=== PATIENT | male | born 1995 | race Caucasian/White ===

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

== ENCOUNTER 2017-03-04 07:07 | Observation (INO) | payer BC ==
[2017-03-04] MEDS ORDERED: NORMAL SALINE 1,000 ML IV ONE ×2 (07:26→08:42)
[2017-03-04 07:34] LABS: Urine Bilirubin Negative (NEGATIVE); Urine Blood Negative /ul (NEGATIVE); Urine Ketone Negative (NEGATIVE); Urine Nitrite Negative (NEGATIVE); Urine Protein Negative (NEGATIVE); Urine Specific Gravity >=1.030 SP.GR. (1.005-1.030); Urine Urobilinogen Normal (NORMAL); Urine pH 5.5 pH (5.0-7.0)
--- NOTE | 2017-03-04 07:39 | ERNOTE ---
<Job Santana - Last Filed: 03/04/17 07:58> Psychological HPI - General Chief Complaint: Drug Overdose Source: Reports: EMS Exam Limitations: Reports: intoxication - Immun/Allergies/Home Medications Allergies/Adverse Reactions: Allergies risperidone Allergy (Severe, Verified 08/27/16 00:32) Anaphylaxis ziprasidone HCl [From Geodon] Allergy (Mild, Verified 08/27/16 00:32) Hives ziprasidone mesylate [From Geodon] Allergy (Mild, Verified 08/27/16 00:32) Hives Home Medications: HOME MEDICATIONS HYDROmorphone HCL [Dilaudid] 2 mg PO TID PRN 08/27/16 [Last Taken Unknown] OXcarbazepine [Oxcarbazepine] 300 mg PO DAILY 03/04/17 [Last Taken Unknown] Quetiapine Fumarate [Seroquel Xr] 200 mg PO HS 03/04/17 [Last Taken Unknown] Sertraline HCl 20 mg PO DAILY 03/04/17 [Last Taken Unknown] - History of Present Illness Narrative: EMS report the patients friend told them that he had been doing meth and xanax for the past few days. He had taken 30 xanax of unknown strength and approx 30 min later he became very somnolent. The friend was driving him to [place] and turned around and took him back home then called 911. EMS were unable to get an IV and report pt only responsive to painful stimuli. Time Seen by Provider: 03/04/17 07:07 Arrived by: Reports: ambulance, called by friend/other Onset/duration: Reports: sudden onset Intent: Reports: other - unknown Mechanism: Reports: overdose Review of Systems - Narrative Narrative: Unable to get ROS due to pt's decreased responsiveness. - Patient's Past Medical History Patient History - Medical: Anxiety, Arthritis, Bipolar, Chronic Pain, Depression Patient History - Cardiac/Respiratory: No pertinent hx Patient History - Cancer: No Hx of Cancer Patient History - Surgical Procedures: No surgical history Patient History - Other: None - Family History Mother Family History - Medical: History Unknown Family History - Cardiac/Respiratory: History Unknown Family History - Cancer: History Unknown Father Family History - Medical: History Unknown Family History - Cardiac/Respiratory: History Unknown Family History - Cancer: History Unknown - Social History Living Situations: parents Abuse History: Hx of Substance Use Psych History: Hx of Anxiety, Hx of Depression, Hx of Bipolar Disorder Drug Use: meth - Immunizations Immunizations Up to Date: - unknown Hx Pneumococcal Vaccination: More Information Required to Determine History of Influenza Vaccine: More Information Required to Determine Psychological Exam - Exam General Appearance: Present: other - initially only responded to painful stimuli , later was opening his eyes spontaneously with obeying some commands Head Exam: Present: normal inspection, no evidence of injury Neurological: Present: responds to pain Eye Exam: PERRL: bilateral Ears, Nose, Throat: Present: normal ENT inspection Neck: Present: supple Respiratory: Present: no respiratory distress, normal breath sounds, no accessory muscle use, lungs clear Cardiovascular/Chest: Present: regular rate, rhythm, no murmur, normal peripheral pulses Gastrointestinal/Abdominal: Present: normal bowel sounds, nondistended, soft Male Genitals Exam: Present: normal genitalia, no hernia Back Exam: Present: normal inspection, normal range of motion Extremity Exam: Present: normal inspection, no edema Skin Exam: Present: normal color, warm/dry, other - erythematous area near umbilicus, sores on dorsal hands. Lymphatic Exam: Present: no adenopathy ED Progress - Vital Signs Patient's Vital Signs:: I have reviewed the patient's vital signs. Vital Signs: Vital Signs 03/04/17 03/04/17 03/04/17 07:08 07:23 07:25 Temperature 36.1 C L Pulse Rate 72 71 73 Respiratory 17 18 Rate Blood Pressure 101/60 110/68 O2 Sat by Pulse 94 98 Oximetry - EKG EKG: NSR EKG read: Interp. by me - Progress/Reassessment Chief Complaint: Drug Overdose - Transfer of Care Physician Sign Out: Job Santana Receiving Physician: Hudson Barajas Pending Results: Labs Expected Disposition: Admit Departure Clinical Impression: Drug abuse Drug overdose Qualifiers: Encounter type: initial encounter Injury intent: undetermined intent Qualified Code(s): T50.904A - Poisoning by unspecified drugs, medicaments and biological substances, undetermined, initial encounter - Departure Disposition: [facility] Condition: Stable <Hudson Barajas - Last Filed: 03/04/17 08:21> ED Progress - Results and Orders Patient's Lab Results:: I have reviewed the patient's lab results. - Vital Signs Patient's Vital Signs:: I have reviewed the patient's vital signs. Vital Signs: Vital Signs 03/04/17 03/04/17 03/04/17 07:08 07:23 07:25 Temperature 36.1 C L Pulse Rate 72 71 73 Respiratory 17 18 Rate Blood Pressure 101/60 110/68 O2 Sat by Pulse 94 98 Oximetry 03/04/17 07:37 Temperature Pulse Rate 73 Respiratory 19 Rate Blood Pressure 110/60 O2 Sat by Pulse 99 Oximetry - Progress/Reassessment Progress Note-Subjective: 03/04/17 08:18 I took the patient over from Dr Santana at 0800 shift change. Please see his note. I spoke with poison control, symptomatic care. I spoke with Dr Olmedo who will admit the patient to the ICU for obs. Pt is somnolent but controlling his airway. VSS. He does awake with stimulation and start grabbing at his case but cannot answer any of my questions. D/W Grandmother in the room. At this time does not need intubation buut depending on his course he may eventually need this.
[2017-03-04 07:41] LABS: Hematocrit 42.5 % (42.0-52.0); Hemoglobin 14.9 gm/dL (13.5-18.0); Mean Cell Volume 84.5 fl (78-100); Mean Corpuscular Hemoglobin 29.6 pg (27-31); Mean Corpuscular Hgb Conc 35.1 g/dl (32-36); Mean Platelet Volume 9.4 fl (6.0-9.5); Neutrophil # 4.5 K/mm3 (1.3-6.0); Neutrophil % 62.4 % (42-75.0); Platelet Count 274 K/mm3 (150-450); Red Blood Count 5.03 M/mm3 (4.7-6.0); Red Cell Distribution Width 12.4 % (11.5-14.0); White Blood Count 7.2 K/mm3 (4.0-10.5)
[2017-03-04 07:45] LABS: Urine Appearance Clear; Urine Bacteria None Seen; Urine Color Dark Yellow; Urine RBC 0-5 /hpf (0-5); Urine WBC None Seen /hpf (0-5)
[2017-03-04 07:47] LABS: Cocaine Ur Negative (NEGATIVE); Urine Barbiturate Negative (NEGATIVE); Urine Opiates Negative (NEGATIVE); Urine PCP Negative (NEGATIVE); Urine THC Negative (NEGATIVE)
[2017-03-04 07:55] LABS: Urine Benzodiazepines Positive (NEGATIVE)
[2017-03-04 07:56] LABS: ALT 22 U/L (19-67); AST 23 U/L (0-48); Albumin * 3.8 gm/dl (3.4-5.0); Alkaline Phosphatase * 78 U/L (50-170); Anion Gap 10.9 mmol/L (6.8-13.8); BUN/Creatinine Ratio 20.7 (9.0-21.6); Bilirubin, Total 0.7 mg/dL (0.0-1.1); Blood Urea Nitrogen 19 mg/dL (6-23); Ca. Corrected For Albumin 8.2 mg/dL (8.4-10.2); Calcium * 8.4 mg/dL (7.9-10.9); Carbon Dioxide 29.6 mmol/L (24-32.6); Chloride 106 mmol/L (97-106); Glucose * 87 mg/dL (70-110); Potassium 3.5 mmol/L (3.4-4.6); Salicylate Less than 2.8 mg/dL (2.8-20.0); Sodium 143 mmol/L (132-142); Total Protein 7.1 gm/dL (6.2-8.2)
--- NOTE | 2017-03-04 09:10 | HP ---
Chief Complaint - Chief Complaint Date of Service: 03/04/17 Time of Service: 09:10 Chief Complaint: drug overdose History of Present Illness: Miguel Weeks, is a 21 year old white male, with PMH of Bipolar Disorder, who was admitted on 03/04/2107 for drug overdose. The patient is somnolent and my history is based on ER notes- " EMS report the patients friend told them that he had been doing meth and xanax for the past few days. He had taken 30 xanax of unknown strength and approx 30 min later he became very somnolent. The friend was driving him to [place] and turned around and took him back home then called 911. EMS were unable to get an IV and report pt only responsive to painful stimuli." The father and grandmoather is with him in the unit. They are not able to add anything more to the story except they thought he was going to work. The grandma did notice something different this morning and asked the patient if he was taking any drugs and " he denied." The poison control was notified by our ED and they recommended symptomatic control. - Patient's Past Medical History Patient History - Medical: Anxiety, Arthritis, Bipolar, Chronic Pain, Depression Patient History - Cardiac/Respiratory: No pertinent hx Patient History - Cancer: No Hx of Cancer Patient History - Surgical Procedures: No surgical history Patient History - Other: None - Family History Mother Family History - Medical: History Unknown Family History - Cardiac/Respiratory: History Unknown Family History - Cancer: History Unknown Father Family History - Medical: History Unknown Family History - Cardiac/Respiratory: History Unknown Family History - Cancer: History Unknown - Social History Living Situations: parents Abuse History: Hx of Substance Use Psych History: Hx of Anxiety, Hx of Depression, Hx of Bipolar Disorder Smoking Status: Current every day smoker Have you smoked in the past 12 months: Yes Drug Use: meth - Immunizations Immunizations Up to Date: - unknown Hx Pneumococcal Vaccination: More Information Required to Determine History of Influenza Vaccine: More Information Required to Determine Review Of Systems (GEN) - Review of Systems Misc: All systems neg except as marked - Unable to get ROS as patient is somnolent- wakes up to questions then mumbles and then falls back to sleep Allergies/Adverse Reactions: Allergies Allergy/AdvReac Type Severity Reaction Status Date / Time risperidone Allergy Severe Anaphylaxis Verified 08/27/16 00:32 ziprasidone HCl [From Geodon] Allergy Mild Hives Verified 08/27/16 00:32 ziprasidone mesylate Allergy Mild Hives Verified 08/27/16 00:32 [From Geodon] Home Medications: HOME MEDICATIONS HYDROmorphone HCL [Dilaudid] 2 mg PO TID PRN 08/27/16 [Last Taken Unknown] OXcarbazepine [Oxcarbazepine] 300 mg PO DAILY 03/04/17 [Last Taken Unknown] Quetiapine Fumarate [Seroquel Xr] 200 mg PO HS 03/04/17 [Last Taken Unknown] Sertraline HCl 20 mg PO DAILY 03/04/17 [Last Taken Unknown] Exam - Exam Vital Signs: Vital Signs - Last Taken Temp 36.1 C L 03/04/17 07:08 Pulse 62 03/04/17 09:03 Resp 18 03/04/17 09:03 BP 119/71 03/04/17 09:03 Pulse Ox 100 03/04/17 09:03 Constitutional: Present: Alert - AAO x 1- wakes up at times to name call, Somnolent ENT Exam: Present: hearing grossly normal Neck: Present: supple Respiratory: Present: normal breath sounds, No rales, No wheezing Cardiovascular/Chest: Present: regular rate, rhythm, no gallop, no JVD Abdomen: Present: Normal bowel sounds, soft, nontender, nondistended Extremity: Present: no pedal edema, no calf tenderness Diagnostic Studies: Laboratory Results WBC 7.2 K/mm3 (4.0-10.5) 03/04/17 07:35 RBC 5.03 M/mm3 (4.7-6.0) 03/04/17 07:35 Hgb 14.9 gm/dL (13.5-18.0) 03/04/17 07:35 Hct 42.5 % (42.0-52.0) 03/04/17 07:35 MCV 84.5 fl (78-100) 03/04/17 07:35 MCH 29.6 pg (27-31) 03/04/17 07:35 MCHC 35.1 g/dl (32-36) 03/04/17 07:35 RDW 12.4 % (11.5-14.0) 03/04/17 07:35 Plt Count 274 K/mm3 (150-450) 03/04/17 07:35 MPV 9.4 fl (6.0-9.5) 03/04/17 07:35 Immature Gran % (Auto) 0.10 % (0.001-0.429) 03/04/17 07:35 Immature Gran # (Auto) 0.01 K/mm3 (0.000-0.0310) 03/04/17 07:35 Neutrophils % 62.4 % (42-75.0) 03/04/17 07:35 Lymphocytes % 23.6 % (20-51) 03/04/17 07:35 Monocytes % 10.8 % (0.0-9) H 03/04/17 07:35 Eosinophils % 2.5 % (0.0-3.0) 03/04/17 07:35 Basophils % 0.6 % (0.0-1.0) 03/04/17 07:35 Nucleated RBC % 0.0 k/mm3 (0-1) 03/04/17 07:35 Neutrophils # 4.5 K/mm3 (1.3-6.0) 03/04/17 07:35 Lymphocytes # 1.7 k/mm3 (1.5-3.5) 03/04/17 07:35 Monocytes # 0.8 k/mm3 (0.0-1.0) 03/04/17 07:35 Eosinophils # 0.2 k/mm3 (0.0-0.7) 03/04/17 07:35 Absolute Basophils 0.0 k/mm3 (0.0-0.1) 03/04/17 07:35 Sodium 143 mmol/L (132-142) H 03/04/17 07:35 Plasma Sodium 143 mmol/L (130-142) H 03/04/17 07:35 Potassium 3.5 mmol/L (3.4-4.6) 03/04/17 07:35 Chloride 106 mmol/L (97-106) 03/04/17 07:35 Carbon Dioxide 29.6 mmol/L (24-32.6) 03/04/17 07:35 Anion Gap 10.9 mmol/L (6.8-13.8) 03/04/17 07:35 BUN 19 mg/dL (6-23) 03/04/17 07:35 Creatinine 0.92 mg/dL (0.4-1.4) 03/04/17 07:35 Est GFR (Non-Af Amer) 113 mL/min (60-130) D 03/04/17 07:35 BUN/Creatinine Ratio 20.7 (9.0-21.6) 03/04/17 07:35 Random Glucose 87 mg/dL (70-110) 03/04/17 07:35 Calcium 8.4 mg/dL (7.9-10.9) 03/04/17 07:35 Calcium Adj for Albumin 8.2 mg/dL (8.4-10.2) L 03/04/17 07:35 Total Bilirubin 0.7 mg/dL (0.0-1.1) 03/04/17 07:35 AST 23 U/L (0-48) 03/04/17 07:35 ALT 22 U/L (19-67) 03/04/17 07:35 Alkaline Phosphatase 78 U/L (50-170) 03/04/17 07:35 Total Protein 7.1 gm/dL (6.2-8.2) 03/04/17 07:35 Albumin 3.8 gm/dl (3.4-5.0) 03/04/17 07:35 Urine Color Dark yellow 03/04/17 07:23 Urine Appearance Clear 03/04/17 07:23 Urine pH 5.5 pH (5.0-7.0) 03/04/17 07:23 Ur Specific [place] >=1.030 SP.GR. (1.005-1.030) 03/04/17 07:23 Urine Protein Negative mg/dL (NEGATIVE) 03/04/17 07:23 Urine Glucose (UA) Negative mg/dL (NEGATIVE) 03/04/17 07:23 Urine Ketones Negative mg/dL (NEGATIVE) 03/04/17 07:23 Urine Blood Negative /ul (NEGATIVE) 03/04/17 07:23 Urine Nitrate Negative (NEGATIVE) 03/04/17 07:23 Urine Bilirubin Negative mg/dl (NEGATIVE) 03/04/17 07:23 Urine Urobilinogen Normal EU/dl (NORMAL) 03/04/17 07:23 Ur Leukocyte Esterase Negative /ul (NEGATIVE) 03/04/17 07:23 Urine RBC 0-5 /hpf (0-5) 03/04/17 07:23 Urine WBC None seen /hpf (0-5) 03/04/17 07:23 Ur Epithelial Cells None seen /hpf (0-5) 03/04/17 07:23 Urine Bacteria None seen (NONE) 03/04/17 07:23 Urine Culture Comments No culture indicated 03/04/17 07:23 Salicylates Less than 2.8 mg/dL (2.8-20.0) L 03/04/17 07:35 Urine Opiates Screen Negative (NEGATIVE) 03/04/17 07:23 Acetaminophen Less than 0.2 mcg/mL (10.0-30.0) L 03/04/17 07:35 Barbiturate Screen Negative (NEGATIVE) 03/04/17 07:23 Ur Phencyclidine Scrn Negative (NEGATIVE) 03/04/17 07:23 Urine Amphetamine Positive (NEGATIVE) H 03/04/17 07:23 U Benzodiazepines Scrn Positive (NEGATIVE) H 03/04/17 07:23 Urine Cocaine Screen Negative (NEGATIVE) 03/04/17 07:23 Urine Marijuana (THC) Negative (NEGATIVE) 03/04/17 07:23 Ethyl Alcohol 6.0 mg/dL (0.0-10.0) 03/04/17 07:35 Assessment/Plan - Assessment/Plan (1) Somnolence Assessment: due to Benzo overdose Problem: Acute (2) Drug overdose Assessment: positive benzodiazepine and amphetamine on UDS. Unable to conclude definitely if there is suicide attempt. Will get psych consult. Problem: Acute Qualifiers: Encounter type: initial encounter Injury intent: undetermined intent Qualified Code(s): T50.904A - Poisoning by unspecified drugs, medicaments and biological substances, undetermined, initial encounter (3) Methamphetamine abuse Problem: Acute (4) Bipolar 1 disorder Problem: Acute
[2017-03-04] MEDS ORDERED: DEXTROSE 5%-0.5 NORMAL SALINE 1,000 ML IV PRN (12:44)
--- NOTE | 2017-03-04 14:53 | PN ---
Subjective - Date and Time Seen Date: 03/04/17 Time: 14:00 Subjective Narrative: Patient states that he had used meth twice in the past 3 days and took alot of Xanax today. Denies this was a suicide attempt. Objective Objective Narrative: Patient has a history of polysubstance abuse. Has been clean for several months , working and living with grandmother. 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 States that he was with a friend and doesn't know why he used meth other than his family members use and he doesn't cope well with it. Admits that he can't control himself around Xanax and will take as much as he can because it makes him feel good. States that he had been avoiding friends who would have Xanax so he wouldn't be tempted but the meth use lowered inhibition. States that he is taking 1/4 of a Seroquel at hs because it is very sedating and he has to get up early for work. Mood is increasingly depressed. Denies any suicidal thoughts. Thinks that Trileptal makes him feel "off-kilter" like he is a little dizzy or "wavy" but feels that it helps with mood and anger. Has alot of anxiety and panic attacks. States that he has paranoid thoughts, even without using meth. Thinks people are hiding under the couch, he is being monitored through the smoke detectors and sees drones flying near his grandmother's house and thinks they are watching him even though rationally, he knows that they are to monitor nearby [place]. States that the pananoia increases anxiety and anxiety increases paranoia. Denies any hallucinations but hears his own voice talking to him at times, especially when paranoid or anxious. Really wants Xanax but knows that he can' t be responsible with it. Discussed addiction and coping mechanisms. Stressed the importance of SA counseling. Patient states that he used IV drugs approx. 9 months ago and has had unprotected sex. States that he is very concerned about STDs, Hepatitis and HIV. Would like to have labs drawn before next appointment if possible. Will order these labs to be drawn later this week in outpatient and will make medication changes. Discussed R/B/SE of medications. Will change Seroquel to Zyprexa 10 mg at hs, Change Trileptal to 150 mg BID, stop Sertraline, and start Buspirone 15 mg TID. Written instructions provided. Patient voices understanding. Has appointment scheduled for 04/18/16 at 4pm. Is cleared to be discharged when medically stable. - Review of Systems Generalized/Overall Review: Reports: No Symptoms Reported Neurological: Reports: Anxiety, Depressed, Emotional Problems - Vitals Vitals: Last Vital Signs Temp 36.1 C L 03/04/17 11:00 Pulse 74 03/04/17 14:00 Resp 18 03/04/17 14:00 BP 109/71 03/04/17 14:00 Pulse Ox 99 03/04/17 14:00 - Exam Constitutional: Present: Alert, Oriented x3, Cooperative, Well developed Appearance: Present: appropriate appearance, appropriate insight, impaired recent memory - Not sure how he ended up here. Remembers using meth, then taking approx. 30 Xanax tablets and the passing out. Does not know where he was or how he got here. Is alert and oriented at this time. Eye contact: Present: cooperative, good eye contact, normal speech Thoughts: Present: normal thought pattern, delusions - Admits to mild paranoia at home, feels that he is being watched. Cauti Physician Documentation - Urinary Catheter Management Urethral (Mcdaniel) Date of Insertion: 03/04/17 Time of Insertion: 07:28 Date of Removal: 03/04/17 Time of Removal: 14:20 Assessment/Plan Plan Narrative: May be discharged home. - Problems/Diagnosis (1) Bipolar 1 disorder Problem: Acute (2) Drug overdose Problem: Acute Qualifiers: Encounter type: subsequent encounter Injury intent: accidental or unintentional Qualified Code(s): T50.901D - Poisoning by unspecified drugs, medicaments and biological substances, accidental (unintentional), subsequent encounter (3) Methamphetamine abuse Problem: Acute
--- NOTE | 2017-03-04 16:48 | DS ---
(1) Somnolence Problem: Resolved (2) Drug overdose Problem: Acute Qualifiers: Encounter type: subsequent encounter Injury intent: accidental or unintentional Qualified Code(s): T50.901D - Poisoning by unspecified drugs, medicaments and biological substances, accidental (unintentional), subsequent encounter (3) Methamphetamine abuse Problem: Acute (4) Bipolar 1 disorder Problem: Chronic Description of Stay: Miguel Weeks, is a 21 year old white male, with PMH of Bipolar Disorder, who was admitted on 03/04/2107 for drug overdose. The patient was somnolent and my history was based on ER notes- " EMS report the patients friend told them that he had been doing meth and xanax for the past few days. He had taken 30 xanax of unknown strength and approx 30 min later he became very somnolent. The friend was driving him to [place] and turned around and took him back home then called 911. EMS were unable to get an IV and report pt only responsive to painful stimuli." The father and grandmother were with him in the unit. They were not able to add anything more to the story except they thought he was going to work. The grandma did notice something different this morning and asked the patient if he was taking any drugs and " he denied." The poison control was notified by our ED and they recommended symptomatic control. He is now fully awake , alert , oriented x 3 and has taken his meal w/o difficulty. He was seen by Michelle Clarke who has cleared him for discharge. She stopped his Seroquel and started him on Zyprexa 10 mg PO QHS, increased his trileptal to 150 mg PO BID, stop his Sertraline and started him on Buspirone 15 mg PO TID. Procedures Performed: none Discharge Disposition: Home self care Disposition: Home self-care Condition: Stable Discharge Activity: Activity as tolerated Discharge Diet: General/regular food Additional Patient Instructions (free text): Follow up with Michelle Clarke as already scheduled. Complete Home Medications List: Complete Home Medication List: Buspirone HCl 15 mg PO TID 03/04/17 OLANZapine [Zyprexa] 10 mg PO HS 03/04/17 OXcarbazepine [Oxcarbazepine] 150 mg PO BID 03/04/17
[2017-03-04 17:05] VITALS: BP 131/92
== END 2017-03-04 17:20 | disposition home or self-care (01) ==
LOC: ER 07:07 → SCU 08:20
PROVIDERS: ADMIT Internal Medicine; ATTEND Internal Medicine
PROC: 0T9B70Z Drainage of Bladder with Drainage Device, Via Natural or Artificial Opening (ICD-10-PCS; principal; 2017-03-04)
DX: T42.4X2A Poisoning by benzodiazepines, intentional self-harm, initial encounter (principal); F31.9 Bipolar disorder, unspecified; F15.10 Other stimulant abuse, uncomplicated; F17.210 Nicotine dependence, cigarettes, uncomplicated
CPT/HCPCS: 36415; 51702; 80053; 80307; 81001; 85025; 93005; 94760; 99285; G0378; G0480; G0481

== ENCOUNTER 2017-04-22 23:15 | Emergency (ER) | payer BC, OTHER ==
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
[2017-04-22] MEDS ORDERED: IBUPROFEN 600 MG TABLET PO ONE (23:44)
[2017-04-22] MEDS ORDERED: IBUPROFEN 600 MG TABLET ONE (23:54)
[2017-04-23 01:59] LABS: Cocaine Ur Negative (NEGATIVE); Urine Barbiturate Negative (NEGATIVE); Urine Benzodiazepines Positive (NEGATIVE); Urine Opiates Negative (NEGATIVE); Urine PCP Negative (NEGATIVE); Urine THC Negative (NEGATIVE)
[2017-04-23 02:38] LABS: BUN/Creatinine Ratio 21.3 (9.0-21.6); Blood Urea Nitrogen 26 mg/dL (6-23); Calcium * 9.1 mg/dL (7.9-10.9); Carbon Dioxide 29.3 mmol/L (24-32.6); Chloride 100 mmol/L (97-106); Estimated Creat Clear 103.7; Glucose * 81 mg/dL (70-110); Potassium 3.3 mmol/L (3.4-4.6); Sodium 138 mmol/L (132-142)
[2017-04-23 04:29] VITALS: BP 115/75
== END 2017-04-23 04:40 | disposition home or self-care (01) ==
LOC: ER 23:15
DX: S40.012A Contusion of left shoulder, initial encounter (principal); F31.9 Bipolar disorder, unspecified; F41.9 Anxiety disorder, unspecified; F17.200 Nicotine dependence, unspecified, uncomplicated; Y35.811A Legal intervention involving manhandling, law enforcement official injured, initial encounter; Y93.89 Activity, other specified
CPT/HCPCS: 36415; 73020; 73060; 80048; 80307; 99284; G0481

== ENCOUNTER 2017-05-06 14:44 | Emergency (ER) | payer BC ==
[2017-05-06 14:54] VITALS: BP 108/72
--- NOTE | 2017-05-06 15:20 | ERNOTE ---
[facility] Date of Service: 05/06/17 Presenting Symptoms: eye pain Time Seen by Provider: 05/06/17 14:56 Source: patient Exam Limitations: no limitations - Immun/Allergies/Home Medications Immunizations: IMMUNIZATION HX Immunizations Up to Date Yes History of Influenza Vaccine No Hx Pneumococcal Vaccination No Allergies/Adverse Reactions: Allergies Allergy/AdvReac Type Severity Reaction Status Date / Time risperidone Allergy Severe Anaphylaxis Verified 08/27/16 00:32 ziprasidone HCl [From [facility]] Allergy Mild Hives Verified 08/27/16 00:32 ziprasidone mesylate Allergy Mild Hives Ver[facility] 08/27[facility]16 00:32 [facility] Home Medications: HOME MEDICATIONS Buspirone HCl 15 mg PO TID 03/04/17 [Last Taken Unknown] OXcarbazepine [Oxcarbazepine] 150 mg PO BID 03/04/17 [Last Taken Unknown] QUEtiapine FUMARATE [Seroquel] 100 mg PO DAILY 04/22/17 [Last Taken Unknown] Naproxen [EC-Naprosyn] 500 mg PO BID PRN #20 tablet. 04/23/17 [Last Taken Unknown] - History of Present Illness Narrative: Pt. comes in with c/o R eye pain and selling in his R eyelid and cheek bone. Pt. denies any fevers, but does states that he has malaise and fatigue. Pt. denies any SOB, CP, NVD, alleviating factors despite taking abx for a week after going to the [facility] and states that touching it exacerbates the symptoms. Severity: Present: moderate ENT Location: Present: eye (R) Prearrival Treatment: Present: prescription meds Modifying Factors - Improves: Reports: nothing Modifying Factors - Worsens: Reports: lying down, other - palpation Associated Symptoms - ENT: Reports: malaise, facial pain/swelling. Denies: fever, cough, voice change, sore throat, nasal congestion/drainage Prior Treament: Reports: recently seen, treated by physician, currently on antibiotics. Denies: recently hospitalized, similar symptoms before Review of Systems - Review of Systems Constitutional: Present: no symptoms reported. Absent: fever, chills, weakness , fatigue, malaise, decreased activity level EYE: Present: eye pain. Absent: eye discharge, blurred vision, double vision, vision changes ENT: Present: no symptoms reported. Absent: ear pain, ear discharge, nose pain , nose congestion Respiratory: Present: no symptoms reported. Absent: shortness of breath, cough , wheezing Cardiology: Present: no symptoms reported. Absent: chest pain, palpitations, edema Gastrointestinal/Abdominal: Present: no symptoms reported. Absent: nausea, vomiting, diarrhea, abdominal pain Genitourinary: Present: no symptoms reported. Absent: frequency, decreased urinary output Musculoskeletal: Present: no symptoms reported. Absent: back pain, joint pain Skin: Present: no symptoms reported. Absent: rash, change in hair/nails Neurological: Present: no symptoms reported. Absent: headache, dizziness/light- headedness, numbness, tingling All Other Systems: All systems neg except as marked - Patient's Past Medical History Patient History - Medical: Anxiety, Arthritis, Bipolar, Chronic Pain, Depression Patient History - Cardiac/Respiratory: No pertinent hx Patient History - Cancer: No Hx of Cancer Patient History - Surgical Procedures: No surgical history Patient History - Other: None - Family History Mother Family History - Medical: History Unknown Family History - Cardiac/Respiratory: History Unknown Family History - Cancer: History Unknown Father Family History - Medical: History Unknown Family History - Cardiac/Respiratory: History Unknown Family History - Cancer: History Unknown - Social History Living Situations: parents Abuse History: Hx of Substance Use Psych History: Hx of Anxiety, Hx of Depression, Hx of Bipolar Disorder Smoking Status: Heavy tobacco smoker Have you smoked in the past 12 months: No Do you dip or chew tobacco: No Alcohol Use: none Drug Use: none - Immunizations Immunizations Up to Date: Yes Hx Pneumococcal Vaccination: No History of Influenza Vaccine: No Physical Exam - Physical Exam General Appearance: Present: wd/wn, alert, no apparent distress Head Exam: Present: normal inspection, no evidence of injury, no tenderness w palpation Eye Exam: PERRL: bilateral, EOMI: bilateral, Other: bilateral - R eyelid edema and erythema Ears, Nose, Throat: Present: normal ENT inspection, normal pharynx Neck: Present: normal inspection, nontender, supple, full range of motion. Absent: lymphadenopathy (R), lymphadenopathy (L) Respiratory: Present: no respiratory distress, normal breath sounds, no accessory muscle use, chest nontender, lungs clear. Absent: crackles, rales, rhonchi, wheezing Cardiovascular/Chest: Present: regular rate, rhythm, no murmur, normal peripheral pulses Gastrointestinal/Abdominal: Present: normal bowel sounds, nontender, nondistended, soft, no organomegaly Back Exam: Present: normal inspection Extremity Exam: Present: normal inspection Neurological Exam: Present: alert, oriented, normal mood/affect, no motor/ sensory deficits, accounting assistant II-XII nml as tested, normal cerebellar test Skin Exam: Present: other - fluctuant 3cm lesion R lateral eye and R cheekbone ED Progress - Date and Time Seen: Date and Time: 05/06/17 15:46 Lactic acid elevated but pt. without tachycardia, hypotension, fever, or elevated WBC or a shift in the differential feel that it is likely reactive and not sepsis. 05/06/17 15:[address] Glaser and he would like me to send pt. to his office so pt. will go there directly after discharge - Results and Orders Patient's Lab Results:: I have reviewed the patient's lab results. - Vital Signs Patient's Vital Signs:: I have reviewed the patient's vital signs. Vital Signs: Vital Signs 05/06/17 14:49 Temperature 36.8 C Pulse Rate 87 Respiratory 16 Rate Blood Pressure 108/[address] Barajas and he recommends consulting Dr Glaser without a CT prior. - Progress/Reassessment Chief Complaint: Eye Injury/Trauma Progress:: Unchanged Departure Clinical Impression: Abscess of eyelid right eye, unspecified eyelid - Departure Disposition: Home self-care Condition: Good Instructions: Abscess, Dozy-fn-Hest Additional Instructions: Please go straight to opthamology and they will take over from there
[2017-05-06 15:22] LABS: Hematocrit 43.3 % (42.0-52.0); Hemoglobin 15.5 gm/dL (13.5-18.0); Mean Cell Volume 83.9 fl (78-100); Mean Corpuscular Hgb Conc 35.8 g/dl (32-36); Mean Platelet Volume 9.5 fl (6.0-9.5); Neutrophil % 61.2 % (42-75.0); Platelet Count 311 K/mm3 (150-450); Red Blood Count 5.16 M/mm3 (4.7-6.0); Red Cell Distribution Width 12.1 % (11.5-14.0); White Blood Count 6.5 K/mm3 (4.0-10.5)
[2017-05-06 15:36] LABS: Albumin * 3.8 gm/dl (3.4-5.0); Anion Gap 12.1 mmol/L (6.8-13.8); BUN/Creatinine Ratio 13.1 (9.0-21.6); Bilirubin, Total 0.4 mg/dL (0.0-1.1); Ca. Corrected For Albumin 8.5 mg/dL (8.4-10.2); Calcium * 8.7 mg/dL (7.9-10.9); Carbon Dioxide 27.6 mmol/L (24-32.6); Potassium 3.7 mmol/L (3.4-4.6); Total Protein 7.8 gm/dL (6.2-8.2)
== END 2017-05-06 15:59 | disposition home or self-care (01) ==
LOC: ER 14:44
DX: H00.033 Abscess of eyelid right eye, unspecified eyelid (principal); F17.200 Nicotine dependence, unspecified, uncomplicated